=== PATIENT | male | born 2005 | race Two or more races ===

== ENCOUNTER 2025-09-16 12:31 | Emergency (ER) | payer SELFPAY ==
[~2025-09-16] VITALS: Ht 162.6 cm; Wt 65.0 kg
[2025-09-16 12:33] VITALS: BP 130/82; PULSE 74; RESP 18; TEMP 37; O2SAT 98
== END 2025-09-16 15:50 | disposition left against medical advice (07) ==
LOC: ER 15:45
DX: S61.217A Laceration without foreign body of left little finger without damage to nail, initial encounter (principal); W26.0XXA Contact with knife, initial encounter; Y93.89 Activity, other specified; Y92.89 Other specified places as the place of occurrence of the external cause; Y99.8 Other external cause status
CPT/HCPCS: 99281